=== PATIENT | female | born 1940 | race Caucasian/White ===

== ENCOUNTER 2018-02-15 13:41 | Inpatient (IN) ==
--- NOTE | 2018-02-15 13:54 | PDOC ---
Nausea/Vomiting/Diarrhea HPI - General Chief Complaint: Nausea / Vomiting / Diarrhea Stated Complaint: Vomiting Date Seen by Provider: 02/15/18 Time Seen by Provider: 13:54 Source: POSITIVE: Patient Exam Limitations: POSITIVE: No limitations Nurse's Notes Reviewed & Considered: Yes - History of Present Illness Initial Comments: This is a well-developed, thin, 77-year-old, female, complaining of abdominal pain, nausea, vomiting, and constipation alternating with diarrhea. Patient states her symptoms have been ongoing for longer than 2 months and that her nausea and vomiting are getting worse. She is now having off a ground emesis. She denies any headache, no sore throat, no fever chills or sweats, no hematuria or dysuria, no myalgias or arthralgias. Body Location Affected: REPORTS: Abdomen Timing: REPORTS: Constant Duration: Other (Greater than 2 months, acutely worse today) Severity: Severe Quality: REPORTS: "Pain" Abdominal Pain Onset Location: REPORTS: Generalized abdomen Abdominal Pain Radiation: REPORTS: Epigastric Context: REPORTS: None Modifying Factors: improves with: Nothing Associated Symptoms: REPORTS: Vomiting, Diarrhea, Epigastric Pain, Other ( Coffee ground emesis) Similar Symptoms Previously: No Recent Care Received: REPORTS: Recently Seen (Seen at the [facility] emergency room.) Any Prior Injuries Related to Current Complaint?: No - Patient Home Medications Home Medications: Home Medications Esomeprazole Cap [Nexium Cap] 40 mg PO BID 08/12/10 Leflunomide [Arava] 20 mg ORAL QD #30 tab 08/11/12 Nortriptyline HCl 1 cap PO DAILY 12/19/13 Docusate Sodium [Colace] 100 mg PO BID PRN cap 05/31/14 Folic Acid 1 mg PO DAILY tab 05/31/14 Lisinopril 10 mg PO DAILY tab 05/31/14 Tofacitinib Citrate [Xeljanz] 5 mg PO BID 01/04/16 Citalopram Hydrobromide [Citalopram HBr] 10 mg PO DAILY 01/05/16 Metoprolol Tartrate Tab [Lopressor Tab] 25 mg PO BID 08/18/16 - Patient Allergies Allergies/Adverse Reactions: Allergies 3 Allergy/AdvReac Type Severity Reaction Status Date / Time meperidine HCl [From Demerol] Allergy Intermediate SEIZURE Verified 02/15/18 18: 23 tegaserod hydrogen maleate AdvReac Severe VOMITING Verified 02/15/18 18:23 [From Zelnorm] Past Medical History - heen HEENT History: Dentures/Partials Additional HEENT History: BILATERAL CATARACTS removed, just has reading glasses Cardiovascular History: Hypertension Additional Cardiovasular History: MURMUR Respiratory History: COPD, Home Oxygen Use Additional Respiratory History: 2LPM O2 N/C CONTINUOUS Gastrointestinal History: GERD Genitourinary History: Recurrent UTI, Incontinence Additional Genitourinary History: CURRENTLY TAKING TRIMETHOPRIM FOR UTI Endocrine History: Denies History Musculoskeletal History: Arthritis, Osteoporosis, Rheumatoid Arthritis, Back Pain, Limited ROM, Joint Pain, Physical Limitation Prosthesis or Implant: No Additional Musculoskeletal History: MEDIPORT TO RIGHT UPPER CHEST Pain pump Neurological History: Denies History Blood Disorders: Denies History Psychiatric History: Depression History of Sexually Transmitted Diseases: No Cancer History: Denies History 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 History of Other Communicable Diseases: No Alcohol Use: None In the Past 12 Months, Have Used or Abuse Any Substance: None Previous Surgical History: Yes Type / Date of Surgery: BACK AND NECK + HWR/ BILAT TSA/ BILAT FOOT/ LEFT KNEE SCOPE WITH TKA / HYST/ APPY/ CATARACTS/ JAMI/ MEDIPORT X 3/ Anesthesia Reactions: Yes (PONV) Malignant Hyperthermia: No Significant Family History: Asthma, Heart disease, Cancer, COPD, Renal disease ROS - Limitations ROS Limitations: No Limitations Constitution: REPORTS: Denies Symptoms Cardiovascular: REPORTS: Denies Cardiac Symptoms Respiratory: REPORTS: Denies Resp Symptoms Neurological: REPORTS: Denies Neuro Symptoms Gastrointestinal: REPORTS: Abdominal Pain, Nausea, Vomitting, Diarrhea, Constipation, Other (Coffee ground emesis) Endocrine: REPORTS: Denies Symptoms Musculoskeletal: REPORTS: Denies MS Symptoms Genitourinary: REPORTS: Denies Symptoms Eyes: REPORTS: Denies Symptoms ENT: REPORTS: Denies Symptoms Skin: REPORTS: Denies Skin Symptoms Lympathic: REPORTS: Denies Lympathic Symptoms Immunologic: POSITIVE: Denies Symptoms Psychiatric: POSITIVE: Denies Psych Symptoms Nausea/Vomiting/Diarrhea Exam - General Appearance General Appearance: POSITIVE: Alert, Cooperative, No Evidence of Trauma, Mild Distress - HEENT HEENT: POSITIVE: Head Inspection Nml, Eyes Inspection Nml, Ears Inspection Nml, Nose Inspection Nml, Oral/Dental Inspect. Nml, Pharynx Inspect. Nml, PERRL, EOMI - Neck Neck: POSITIVE: Supple, Normal Inspection, Non Tender - Respiratory Respiratory: POSITIVE: No Respiratory Distress, Breath Sounds Normal, Chest Non- Tender - Cardiovascular Cardiovascular: POSITIVE: Regular Rate and Rhythm, Heart Sounds Normal, Strong Pulses Peripheral Pulses: Radial (L): 4+ - Chest Chest: POSITIVE: Non Tender - Abdomen Abdomen: Soft: (All Quadrants), Normal Bowel Sounds: (All Quadrants), Denies Tenderness: (LLQ), (RLQ), No Splenomegaly: (All Quadrants), No Hepatomegaly: ( All Quadrants), No Guarding: (RLQ), (LLQ), No Rebound: (All Quadrants), No Palpable Pulse: (All Quadrants), No Palpabale Mass: (RLQ), (LLQ), No Distention : (All Quadrants), No Rigidity: (All Quadrants), Tenderness Noted: (RUQ), (LUQ) , Palpable Mass Noted: (RUQ), (LUQ), Guarding: (RUQ), (LUQ) - Back Back: POSITIVE: Normal Inspection - Skin Skin: POSITIVE: Intact, Normal For Race, Warm, Dry, No Rash - Extremities Extremity: Non-Tender: (All Extremities), Normal ROM: (All Extremities), Normal Inspection: (All Extremities), Pelvis Stable: (All Extremities) - Neurological / Psychological Neurological: POSITIVE: Affect Apporpriate, Oriented X3, 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, Motor Normal, Sensation Normal N/V/D Progress - Results Reviewed by me Xrays/CTs/US Reviewed by me: Yes Discussed with Radiologist: Yes Lab Results Reviewed by Me: Yes CBC and BMP: 02/16/18 04:35 02/16/18 04:35 Lab Results:: Laboratory Results 3 02/15/18 02/15/18 02/15/18 15:07 15:07 15:07 WBC 6.26 RBC 2.85 L Hgb 9.6 L Hct 30.5 L MCV 107.0 H MCH 33.7 H MCHC 31.5 L RDW Std Deviation 57.5 H RDW Coeff of Christne 15.2 H Plt Count 163 MPV 9.7 Immature Gran % (Auto) 0.2 Neut % (Auto) 78.2 Lymph % (Auto) 15.3 [place] % (Auto) 5.9 Eos % (Auto) 0.2 Baso % (Auto) 0.2 Immature Gran # (Auto) 0.01 Neut # (Auto) 4.90 Lymph # (Auto) 0.96 [place] # (Auto) 0.37 Eos # (Auto) 0.01 Baso # (Auto) 0.01 WBC Morphology Comment Normal morphology Plt Morphology Comment Normal morphology RBC Morph Comment Normal morphology PT 10.7 INR 1.01 Sodium 140 Potassium 4.4 Chloride 103 Carbon Dioxide 30 Anion Gap 7 BUN 17 Creatinine 0.8 BUN/Creatinine Ratio 21.25 H Glucose 114 H Calculated Osmolality 292.0 Calcium 8.8 Magnesium 2.1 Total Bilirubin 0.4 AST 29 ALT 26 Alkaline Phosphatase 96 C-Reactive Protein 2.0 H Total Protein 6.8 Albumin 3.6 Globulin 3.2 Albumin/Globulin Ratio 1.10 L Lipase 10 L TSH 3 02/15/18 15:07 WBC RBC Hgb Hct MCV MCH MCHC RDW Std Deviation RDW Coeff of Christen Plt Count MPV Immature Gran % (Auto) Neut % (Auto) Lymph % (Auto) [place] % (Auto) Eos % (Auto) Baso % (Auto) Immature Gran # (Auto) Neut # (Auto) Lymph # (Auto) [place] # (Auto) Eos # (Auto) Baso # (Auto) WBC Morphology Comment Plt Morphology Comment RBC Morph Comment PT INR Sodium Potassium Chloride Carbon Dioxide Anion Gap BUN Creatinine BUN/Creatinine Ratio Glucose Calculated Osmolality Calcium Magnesium Total Bilirubin AST ALT Alkaline Phosphatase C-Reactive Protein Total Protein Albumin Globulin Albumin/Globulin Ratio Lipase TSH 2.05 - Patient's Progress Pain Medication Addressed: POSITIVE: Yes Status: POSITIVE: Improved MDM / ED Course: Patient was evaluated, an IV started, blood drawn and sent to the lab for studies, radiographic studies were obtained. Findings: CBC shows anemia with hemoglobin 9.6 hematocrit of 30.5. INR is normal at 1.05. See CRP is elevated at 2.0. Lipase is low in. TSH is normal at 2.05. CT scan of her abdomen shows no acute intra-abdominal abnormalities. Assessment: Hematemesis, likely related to ulcerative disease. Plan: I have contacted Dr. Finn for consultation from surgery, he will see the patient on the floor. I have contacted Dr. Thanh Akins's for admission , he has graciously accepted the patient and will evaluate the patient on the floor for admission. - Consult Consult (If Yes, Name of Consulting MD & Time Called): Yes (Dr. Nitza Finn 1700hrs. Dr. Hughes 1705hrs) Consulting MD will see pt:: [place] [facility] [place] Counseled: POSITIVE: Patient, Family, RE: Lab Results, RE: Radiology Results, RE : DX, RE: Need for F/U Patient Care Time - Estimated PCT Patient Care Time (In Minutes): 45 Vital Signs - Recent Vital Signs Vital Signs: Vital Signs (Last 8 hours) Temp Pulse Resp BP Pulse Ox 02/16/18 06:44 98 F 59 L 19 117/46 98 02/16/18 05:29 95 02/16/18 04:32 97.6 F 63 18 124/43 95 - VS Reviewed Vital Signs Reviewed: Yes Discharge Clinical Impression: Abdominal pain, Upper GI bleed Discharge Disposition: Admit to Inpatient Condition: Stable Date Decision to Admit to Inpatient: 02/16/18 Time Decision to Admit to Inpatient: 17:00
[2018-02-15] MEDS ORDERED: ONDANSETRON 4 MG/2 ML VIAL IVP ONE (14:03)
[2018-02-15] MEDS ORDERED: Sodium Chloride 0.9% 1,000 ML PRIMARY IV ONE ×2 (14:03→17:17)
[2018-02-15] MEDS ORDERED: MORPHINE SULFATE 4 MG/1 ML IVP ONE (14:03)
[2018-02-15 15:17] LABS: BASOPHILS # (AUTO) 0.01 10*3/UL; BASOPHILS % (AUTO) 0.2 % (0-1); EOSINOPHILS # (AUTO) 0.01 10*3/UL; EOSINOPHILS % (AUTO) 0.2 % (0-8); Hematocrit [HCT] 30.5 % (37.0-47.0); Hemoglobin [HGB] 9.6 g/dL (12.0-16.0); LYMPHOCYTES # (AUTO) 0.96 10*3/uL; MEAN CORPUSCULAR HEMOGLOBIN 33.7 PG (27-31); MEAN CORPUSCULAR HGB CONC 31.5 g/dL (33-37); MEAN PLATELET VOLUME 9.7 FL (7.4-12.2); MONOCYTES # (AUTO) 0.37 10*3/UL (0.3-0.8); MONOCYTES % (AUTO) 5.9 % (5-15); NEUTROPHILS % (AUTO) 78.2 % (50-80); PLATELET MORPHOLOGY COMMENT NORMAL MORPHOLOGY (NORM); RBC MORPHOLOGY COMMENT NORMAL MORPHOLOGY (NORM); RED BLOOD COUNT 2.85 10^6/uL (4.20-5.40); WBC MORPHOLOGY COMMENT NORMAL MORPHOLOGY (NORM)
[2018-02-15 15:37] LABS: BLOOD UREA NITROGEN 17 mg/dL (7-22); BUN/CREATININE RATIO 21.25 (6-20); LIPASE 10 IU/L (23-300); SERUM ALBUMIN 3.6 g/dL (3.5-4.8)
[2018-02-15] MEDS ORDERED: ONDANSETRON 4 MG/2 ML VIAL IVP PRN (18:32)
[2018-02-15] MEDS ORDERED: LIDOCAINE W/ SODIUM BICARB 0.5 ML SYR SUBD PRN (18:32)
[2018-02-15] MEDS ORDERED: DOCUSATE 100 MG CAPSULE PO PRN (18:33)
--- NOTE | 2018-02-15 18:37 | PDOC ---
HPI - History of Present Illness History of Present Illness: This very nice 77-year-old female comes to the hospital complaining of some abdominal pain severe heartburn occasional nausea and constipation. The constipation has a resolved but her heartburn was really bothering her is been going on for over a month now complaining also of ground emesis coffee-ground emesis be admitted for further evaluation general surgery was consult did and possible EGD in the morning Denies chest pain at present time shortness of breath and she is comfortably in bed Past Medical History Medical History: Chronic home oxygen at 2 L per nasal cannula, attributed to COPD although the patient did not smoke, rheumatoid arthritis, chronic back pain , MediPort the right upper chest, GERD status post Yony but still on proton pump inhibitor, depression, chronic pain related to rheumatoid arthritis, hypertension Surgical History: Back and neck surgeries, bilateral shoulder surgeries, bilateral foot surgery, left knee surgery, hysterectomy, appendectomy, cataracts , cholecystectomy, and a Mediport placement. The patient states that she had a Yony fundoplication recently and may have had a loop recorder placed in the past Pertinent Family History: Significant for colon cancer in the family. 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 Lives in the [place], [place] area. Had 5 children, but 2 have passed on, one from accidental carbon monoxide poisoning and 1 from a heart attack in her late 20s. Does not smoke, and does not drink alcohol. Tobacco Use: Never Smoker In the Past 12 Months, Have Used or Abuse Any of the Following Substance: None Medication / Allergies Home Medications: Home Medications 3 Medication Instructions Recorded Confirmed Type Esomeprazole Cap [Nexium Cap] 40 mg PO BID 08/12/10 02/15/18 History Leflunomide [Arava] 20 mg ORAL QD #30 tab 08/11/12 02/15/18 History Nortriptyline HCl 1 cap PO DAILY 12/19/13 02/15/18 History Docusate Sodium [Colace] 100 mg PO BID PRN cap 05/31/14 02/15/18 History Folic Acid 1 mg PO DAILY tab 05/31/14 02/15/18 History Lisinopril 10 mg PO DAILY tab 05/31/14 02/15/18 History Tofacitinib Citrate [Xeljanz] 5 mg PO BID 01/04/16 02/15/18 History Citalopram Hydrobromide 10 mg PO DAILY 01/05/16 02/15/18 History [Citalopram HBr] Metoprolol Tartrate Tab 25 mg PO BID 08/18/16 02/15/18 History [Lopressor Tab] Allergies/Adverse Reactions: Allergies 3 Allergy/AdvReac Type Severity Reaction Status Date / Time meperidine HCl [From Demerol] Allergy Intermediate SEIZURE Verified 02/15/18 18: 23 tegaserod hydrogen maleate AdvReac Severe VOMITING Verified 02/15/18 18:23 [From Zelnorm] Review of Systems - Review of Systems All Systems: Reviewed & No Additional Complaints Except as Stated - Respiratory Respiratory: DENIES: Negative System Review, Cough, Sputum, Dyspnea At Rest, Dyspnea with Exertion, Pleuritic Pain, Hemoptysis, Wheezing, Other, See HPI - Cardiovascular Cardiovascular: DENIES: Negative System Review, Chest Pain, Edema, Syncope, Palpitations, Orthopnea, Paroxysmal Nocturnal Dyspnea, Other, See HPI - Gastrointestinal Gastrointestinal / Abdominal: REPORTS: Nausea, Vomiting, Heartburn, Other ( Coffee-ground emesis) Exam - Vitals Vital Signs: Vital Signs Temperature 97.2 F Temperature Source Temporal Artery Scan Pulse Rate [Pulse Oximeter] 76 Pulse Rate 68 Respiratory Rate 16 Blood Pressure [Left Arm] 152/89 Blood Pressure 115/59 Pulse Ox 97 Oxygen Flow Rate 2 Oxygen Delivery Method Nasal Cannula Height 5 ft 1 in Weight 103 lb 1 oz - General General Appearance: No Acute Distress, Cooperative - Head Head Exam: Normal Inspection, Normocephalic, Atraumatic - Eye Eye Exam: POSITIVE: Normal Appearance, PERRL, EOMI, No Scleral Icterus - Respiratory Respiratory Exam: POSITIVE: Clear to Auscultation - Bilaterally, Breathing Non Labored, Normal To Percussion, Normal to Percussion and Palpation - Cardiovascular Cardiovascular Exam: POSITIVE: RRR, No Murmur, No Clicks, No Gallops, No Rubs, PMI Non-Displaced - GI/Abdominal GI/Abdominal Exam: POSITIVE: Normal Bowel Sounds, Non Tender, Non Distended, Soft, No Masses, No Hepatomegaly, No Splenomegaly, No Organomegaly - Extremities Extremities Exam: POSITIVE: Normal Inspection, Full ROM, Normal Capillary Refill , No Clubbing Present, No Edema Present, No Cyanosis Present, Negative Kristie's sign, Dosalis Pedis Pulses - Stong & Regular - Neurological Neurological Exam: POSITIVE: Alert, Oriented x 3, No Facial Droop, Speech Intact / Clear, Moves All Extremities Equally Results - Labs CBC and BMP: 02/15/18 15:07 02/15/18 15:07 Assessment and Plan - Patient Problems (1) Upper GI bleed Current Visit: Yes Status: Acute Comment: Most likely peptic ulcer disease we'll start Protonix IV twice a day general surgery consult did patient is nothing by mouth IV fluids at 125 an hour EGD in a.m. we'll resume usual medications for other medical issues are now stable Code(s): K92.2 - Gastrointestinal hemorrhage, unspecified (2) Abdominal pain Current Visit: Yes Status: Acute Code(s): R10.9 - Unspecified abdominal pain
[2018-02-15] MEDS ORDERED: LEFLUNOMIDE 20 MG ORAL SCH (18:45)
[2018-02-15] MEDS ORDERED: Pantoprazole Inj 40 MG in Normal Saline Flush 10 ML IVP SCH (18:45)
[2018-02-15] MEDS ORDERED: PANTOPRAZOLE IV 40 MG VIAL ONE (18:49)
[2018-02-15] MEDS: Sodium Chloride 0.9% 1,000 ML PRIMARY IV SCH (19:06)
--- NOTE | 2018-02-15 19:23 | CONSULT ---
Consult Note - Consult Consult Date: 02/15/18 Reason for Consult: PreOp Consulation : General Surgery Requesting Physician: Dr. Martinez Primary Care Provider: ALLISON BRITO - History of Present Illness History of Present Illness: This is a 77-year-old female who has a chronic anemia who comes in with a couple day history of severe epigastric abdominal pain. She states that she's having bad heartburn. She is also started having coffee-ground emesis. She states that she has been constipated but now the constipation has resolved. Patient has a history of chronic constipation. In 2014 we did a colonoscopy which was marginal bowel prep and no obvious cancers were seen at that time. She denies any blood in the stools at this time. Patient is continuing to take her Nexium. Patient is is concerned that she has a Mediport the has been flushed in years. She would like to have it removed Review of Systems - Constitutional Constitutional: REPORTS: Negative System Review, General Health Fair - Integumentary Integumentary: REPORTS: Negative System Review - Eye Exam Eye Exam: REPORTS: Negative System Review - Ear/Nose Exam Ear/Nose Exam: REPORTS: Negative System Review - Respiratory Respiratory: REPORTS: Negative System Review, Other (On oxygen) - Cardiovascular Cardiovascular: REPORTS: Negative System Review - Gastrointestinal Gastrointestinal / Abdominal: REPORTS: Nausea, Vomiting, Constipation, Heartburn , Other, See HPI - Genitourinary Genitourinary: REPORTS: Negative System Review - Musculoskeletal Musculoskeletal: REPORTS: Negative System Review - Hematlogic / Lymphatic Hematologic / Lymphatic: REPORTS: Negative System Review - Neurological Neurologic: REPORTS: Negative System Review - Psychiatric Psychiatric: REPORTS: Negative System Review Past Medical History Medical History: Chronic home oxygen at 2 L per nasal cannula, attributed to COPD although the patient did not smoke, rheumatoid arthritis, chronic back pain , MediPort the right upper chest, GERD status post Yony but still on proton pump inhibitor, depression, chronic pain related to rheumatoid arthritis, hypertension Surgical History: Back and neck surgeries, bilateral shoulder surgeries, bilateral foot surgery, left knee surgery, hysterectomy, appendectomy, cataracts , cholecystectomy, and a Mediport placement. The patient states that she had a Yony fundoplication recently and may have had a loop recorder placed in the past Pertinent Family History: Significant for colon cancer in the family. 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 Lives in the [place], [place] area. Had 5 children, but 2 have passed on, one from accidental carbon monoxide poisoning and 1 from a heart attack in her late 20s. Does not smoke, and does not drink alcohol. Tobacco Use: Never Smoker In the Past 12 Months, Have Used or Abuse Any of the Following Substance: None Medication / Allergies Home Medications: Home Medications 3 Medication Instructions Recorded Confirmed Type Esomeprazole Cap [Nexium Cap] 40 mg PO BID 08/12/10 02/15/18 History Leflunomide [Arava] 20 mg ORAL QD #30 tab 08/11/12 02/15/18 History Nortriptyline HCl 1 cap PO DAILY 12/19/13 02/15/18 History Docusate Sodium [Colace] 100 mg PO BID PRN cap 05/31/14 02/15/18 History Folic Acid 1 mg PO DAILY tab 05/31/14 02/15/18 History Lisinopril 10 mg PO DAILY tab 05/31/14 02/15/18 History Tofacitinib Citrate [Xeljanz] 5 mg PO BID 01/04/16 02/15/18 History Citalopram Hydrobromide 10 mg PO DAILY 01/05/16 02/15/18 History [Citalopram HBr] Metoprolol Tartrate Tab 25 mg PO BID 08/18/16 02/15/18 History [Lopressor Tab] Allergies/Adverse Reactions: Allergies 3 Allergy/AdvReac Type Severity Reaction Status Date / Time meperidine HCl [From Demerol] Allergy Intermediate SEIZURE Verified 02/15/18 18: 23 tegaserod hydrogen maleate AdvReac Severe VOMITING Verified 02/15/18 18:23 [From Zelnorm] Results - Labs CBC and BMP: 02/15/18 15:07 02/15/18 15:07 Exam - Vitals Vital Signs: Vital Signs Temperature 97.2 F Temperature Source Temporal Artery Scan Pulse Rate [Apical] 70 Pulse Rate [Pulse Oximeter] 76 Pulse Rate 68 Respiratory Rate 16 Blood Pressure [Left Arm] 152/89 Blood Pressure 115/59 Pulse Ox 97 Oxygen Flow Rate 2 Oxygen Delivery Method Nasal Cannula Height 5 ft 1 in Weight 103 lb 1 oz - General General Appearance: No Acute Distress - Head Head Exam: Normocephalic - Eye Eye Exam: POSITIVE: PERRL, EOMI - Neck Neck Exam: Full ROM - Respiratory Respiratory Exam: POSITIVE: Clear to Auscultation - Bilaterally, Breathing Non Labored - Cardiovascular Cardiovascular Exam: POSITIVE: RRR, No Murmur, No Clicks, No Gallops - GI/Abdominal GI/Abdominal Exam: POSITIVE: Non Tender, Non Distended, Soft - Rectal Rectal Exam: POSITIVE: Deferred - External Exam: POSITIVE: Deferred - Extremities Extremities Exam: POSITIVE: Normal Inspection, Full ROM, Normal Capillary Refill , No Clubbing Present, No Edema Present, No Cyanosis Present, Negative Kristie's sign, Dosalis Pedis Pulses - Stong & Regular - Neurological Neurological Exam: POSITIVE: Alert, Oriented x 3, CN II-XII Intact - Psychiatric Psychiatric Exam: POSITIVE: Normal Affect, Normal Mood Assessment and Plan - Patient Problems (1) Hematemesis with nausea Current Visit: Yes Status: Acute Code(s): K92.0 - Hematemesis - Assessment / Plan Additional Assessment/Plan Details: Would recommend the patient have an EGD. The risk and potential complications of the procedure were discussed with the patient.. They understood this. Also discussed alternatives diagnostic and treatment options. Will get the EGD set up at the first available date. CPT 14132 Also would recommend that she had a Mediport remove stitches no longer using this. We will see if Medicare will allow this be done at this visit
[2018-02-15] MEDS: Metoprolol TARTRATE Tab 25 MG TAB PO SCH (20:10)
--- NOTE | 2018-02-15 23:02 | DI ---
CT ABDOMEN SCAN WITH IV CONTRAST, 02/15/2018 2:03 PM : Clinical History: Epigastric pain. Epigastric mass with nausea, vomiting coffee grounds material. Previous Exam: 07/02/2015. Scans are performed from the lower lung bases through the liver and kidneys with IV contrast. 65 mL o f Isovue 300 was injected IV. Water was used for rectal contrast. The lung bases are clear. Coronary artery calcifications are present in the proximal and middle third s of the LAD, the proximal right coronary artery and in the left circumflex artery extending to the m edial and lateral branches. A large hiatal hernia is present. The liver is normal but does show mild intrahepatic biliary dilatation secondary to cholecystectomy. Common bile duct measures 9 mm. There i s no abnormality of the spleen, pancreas, and adrenal glands. Both kidneys are normal in size, shape, position and contour. There is no hydronephrosis or hydroureter. No renal or ureteral calculi are pr esent. There are no abnormal retrocrural or periaortic nodes. No ascites is present. READIN. Normal CT abdomen scan. No mass is seen in the epigastric region. 2. Coronary artery disease. CT PELVIS SCAN WITH IV CONTRAST, 02/15/2018 2:03 PM: Clinical History: See above. Previous Exam: 07/02/2015. Scans are performed from just superior to the umbilicus to the symphysis pubis with IV contrast. This is the same bolus of contrast used for the CT scans of the abdomen. Scans through the lower abdomen and pelvis show no masses, enhancing lesions, or abnormal fluid colle ctions. There is no adenopathy. The appendix is not identified with certainty but there is no inflamm atory mass either in the cecum or in the right lower quadrant. The small bowel, terminal ileum, and i leocecal valve are normal. The colon is also normal. There are no hernias. Neither the uterus nor the ovaries are visualized in this patient presumably is status post hysterectomy and bilateral salpingo -oophorectomy. READING: Normal CT scan of the pelvis with IV contrast.
[2018-02-16] MEDS: Sodium Chloride 0.9% 1,000 ML PRIMARY IV SCH ×2 (01:48→11:55)
[2018-02-16 05:34] LABS: BASOPHILS # (AUTO) 0 10*3/UL; BASOPHILS % (AUTO) 0 % (0-1); EOSINOPHILS # (AUTO) 0.12 10*3/UL; EOSINOPHILS % (AUTO) 2.6 % (0-8); Hematocrit [HCT] 25.9 % (37.0-47.0); Hemoglobin [HGB] 8.2 g/dL (12.0-16.0); LYMPHOCYTES # (AUTO) 1.42 10*3/uL; MEAN CORPUSCULAR HEMOGLOBIN 34.2 PG (27-31); MEAN CORPUSCULAR HGB CONC 31.7 g/dL (33-37); MEAN CORPUSCULAR VOLUME 107.9 FL (81-99); MEAN PLATELET VOLUME 9.5 FL (7.4-12.2); MONOCYTES # (AUTO) 0.48 10*3/UL (0.3-0.8); MONOCYTES % (AUTO) 10.5 % (5-15); NEUTROPHILS # (AUTO) 2.53 10*3/UL; NEUTROPHILS % (AUTO) 55.7 % (50-80)
[2018-02-16 05:41] LABS: PLATELET MORPHOLOGY COMMENT NORMAL MORPHOLOGY (NORM); RBC MORPHOLOGY COMMENT NORMAL MORPHOLOGY (NORM); WBC MORPHOLOGY COMMENT NORMAL MORPHOLOGY (NORM)
[2018-02-16 05:55] LABS: BLOOD UREA NITROGEN 13 mg/dL (7-22); BUN/CREATININE RATIO 16.25 (6-20)
[2018-02-16] MEDS ORDERED: Lactated Ringers 1,000 ML PRIMARY IV SCH (07:45)
[2018-02-16] MEDS ORDERED: PANTOPRAZOLE IV 40 MG VIAL ONE ×2 (09:10→20:14)
[2018-02-16] MEDS: Pantoprazole Inj 40 MG in Normal Saline Flush 10 ML IVP SCH ×2 (09:17→20:21)
[2018-02-16] MEDS: FOLIC ACID 1 MG TABLET PO SCH (09:18)
[2018-02-16] MEDS: Metoprolol TARTRATE Tab 25 MG TAB PO SCH ×2 (09:18→20:20)
[2018-02-16] MEDS: CITALOPRAM 20 MG TABLET PO SCH (09:18)
[2018-02-16] MEDS: NORTRIPTYLINE HCL 10 MG CAPSULE PO SCH (09:19)
--- NOTE | 2018-02-16 09:49 | PDOC(PROG) ---
Date and Time of Service: 02/16/2018 9:45 AM Interval History: Subjective Patient came in yesterday because of history of heartburn that's been going on for 2-3 months, she did say that she been vomiting every morning the last month. The last 2 days she had coffee-ground vomiting she vomited 3 times the day before and twice yesterday. She did not eat much since yesterday. She feels better today the heart burn seemed to be improved the vomiting seemed to be stopped. She has a history of rheumatoid arthritis and been on multiple medications now currently she is on xeljanz. She denied taking any NSAIDs. She said she has a pain pump for her back pain. Objective : Data - Labs CBC and BMP: 02/16/18 04:35 02/16/18 04:35 Objective : Exam - General General Appearance: No Acute Distress, Cooperative - Head Head Exam: Normal Inspection - Eye Eye Exam: Normal Appearance - ENT ENT Exam: Normal Exam - Neck Neck Exam: Normal Inspection - Respiratory Respiratory Exam: Clear to Auscultation - Bilaterally Additional Respiratory Exam Details: MediPort felt on the right side of the chest. - Cardiovascular Cardiovascular Exam: RRR - GI/Abdominal GI/Abdominal Exam: Normal Bowel Sounds, Non Tender, Non Distended, Soft, No Organomegaly - Rectal Rectal Exam: Deferred - External Exam: Deferred - Extremities Additional Extremities Exam Details: Changes of rheumatoid arthritis noted in both hands. - Back Additional Back Exam Details: Scoliosis is noted on the back. The pain pump is present in the back. - Neurological Neurological Exam: Alert, Oriented x 3, CN II-XII Intact, Speech Intact / Clear Additional Neurological Exam Details: Limited right shoulder abduction because of previous surgery. - Psychiatric Psychiatric Exam: Normal Affect - Integumentary Integumentary Exam: Pallor Assessment and Plan - Patient Problems (1) Abdominal pain Current Visit: Yes Status: Acute Comment: may be due to Severe reflux, gastritis or an ulcer. She is on Protonix continue. She'll have an EGD done today. Code(s): R10.9 - Unspecified abdominal pain (2) Upper GI bleed Current Visit: Yes Status: Acute Comment: She'll have an EGD to look into the possibility of gastritis or reflux or an ulcer. Continue Protonix. She has anemia and she had anemia from before her MCV is elevated we'll send for B12 folate and ferritin and iron levels. Code(s): K92.2 - Gastrointestinal hemorrhage, unspecified (3) Hypertension Current Visit: No Status: Acute Comment: Continue metoprolol. Lisinopril was withheld to continue holding it. Code(s): I10 - Essential (primary) hypertension Qualifiers: Hypertension type: essential hypertension Qualified Code(s): I10 - Essential (primary) hypertension
[2018-02-16] MEDS ORDERED: LIDOCAINE MPF 2% - 5 ML (20 MG/1 ML) ONE ×3 (10:53→11:24)
[2018-02-16] MEDS ORDERED: MIDAZOLAM 5 MG/1 ML ONE (10:53)
[2018-02-16] MEDS ORDERED: PROPOFOL 10 MG/1 ML (200 MG/20 ML) VIAL IV ONE (10:53)
[2018-02-16] MEDS ORDERED: fentaNYL Inj 100 MCG/2 ML VIAL ONE (10:53)
[2018-02-16] MEDS ORDERED: LIDOCAINE 2% VISCOUS(20 MG/1 ML) - 15 ML UD CUP PO ONE (10:56)
--- NOTE | 2018-02-16 11:43 | GEN.OPNOTE ---
EGD Operative Note Surgery Date: 02/16/18 Preoperative Diagnosis: Upper GI bleed Postoperative Diagnosis: Small bleeding ulcer with scab over seen in the upper portion of the stomach within the hiatal hernia. Gastritis Procedure: Esophagogastroduodenoscopy with biopsies Surgeon: Christian Finn MD Anesthesia Provider: Kristie Apodaca CRNA Anesthesia Type: MAC Indications: Patient has an upper GI bleed with hematemesis and anemia Findings: Esophagus: Lipids video EGD scope sent posterior pharynx Esophagus under Direct Visualization. Patient Had Tortures Esophagus Measured Approximately 35 Cm from Incisors to the GE junction GE Junction : GE junction at 35 cm Fundus : Scope retroflexed on itself revealing a moderate-sized hiatal hernia. Brought the scope into the hiatal hernia and in the pouch of the hiatal hernia there was a balloon bleeding spot. This appeared to be a punctate ulcer. Good clot but it was a fresh clot on it. Body : Body of the stomach appeared be normal no ulcers or masses. Prepyloric : Prepyloric area had some mild inflammatory condition. Biopsy taken CLOtest taken Small Intestine : Her second portion the duodenum. Normal A lubricated flexible upper endoscope was inserted and passed through the esophagus and stomach into the duodenum. Pathology: Biopsying a pre-antral area and CLOtest Additional Details: We'll need to get an upper GI x-ray to assess what type a hiatal hernia patient has whether we have a sliding hiatal hernia versus true paraesophageal hiatal hernia. Endoscopy Procedures - Endoscopy Procedures Primary Endoscopy Procedure: 41209 : EGD w/Biospy
--- NOTE | 2018-02-16 11:46 | GEN.OPNOTE ---
Operative Note Surgery Date: 02/16/18 Preoperative Diagnosis: Gastrointestinal hemorrhage secondary to an ulcer and a hiatal hernia. Compared arthritis. Mediport that is no longer functioning Postoperative Diagnosis: Same as preoperative diagnosis Procedure: Removal of Mediport Surgeon: Christian Finn MD Anesthesia Provider: Kristie Apodaca CRNA Anesthesia Type: Local, MAC Estimated Blood Loss (mL): 1 Indications: This elderly female who lives a distance from the hospital comes in with upper GI bleed. Patient has a Mediport that no longer is functioning in fact has not been flushed for this year. Therefore it needs removed. Patient is having conscious sedation with an EGD procedure for an upper GI bleed. His toes patient's best interest not to go through to anesthetics or surgical procedures therefore were going to remove the Mediport at the time of her EGD. Operative Summary: Patient is placed in supine position. Prepped draped sterile fashion. Timeout performed per protocol was done. I infiltrated 2% Xylocaine a total of 8 mL was used. Adequate hemostasis, I made a skin incision through the previous scar. Bluntly dissected out the catheter and removed it. I then bluntly dissected out the Mediport. I removed the capsule electrocautery. After adequate hemostasis a closed the wound with 4-0 Monocryl continuous running septic restitch. Sterile dressings applied. Patient tolerated procedure well the were no complications. Patient Problems - Patient Problem List (1) Hematemesis with nausea Current Visit: Yes Status: Acute Code(s): K92.0 - Hematemesis Category: Medical Procedure Codes - Catheterization/Mediport Procedures Primary Catheterization/Mediport Procedure: 51210 : Removal CVC, Tunnel, Subq
--- NOTE | 2018-02-16 12:50 | CRNA.PROGR ---
Anesthesia Time - - Start date: 02/16/18 - Procedure/Recovery Time Anesthesia : Time In: 10:56 Anesthesia : Time Out: 11:37 - Other Weight: 48.172 kg Height: 5 ft 1 in Body Mass Index (BMI): 20.0 Physical Status: P3 Anesthesia Type: MAC
--- NOTE | 2018-02-16 16:02 | DI ---
SINGLE CONTRAST UPPER GI SERIES, 02/16/2018 11:54 AM: Clinical History: Hiatal hernia with upper GI hemorrhage. A "time out" session was performed to verify the patient's name and date of prior to initiating this procedure. Deglutition is normal and the esophagus strips well. There are tertiary contractions throughout appropriate for the patient's age. In the distal half of the esophagus, there is a nodula r pattern in the mucosa consistent with esophagitis. No esophageal stricture is identified. This jc ent has had a previous fundoplication in the fundus lies above the diaphragm. The body, antrum, pylor ic channel, duodenal bulb, and proximal small bowel run off are normal. Readin. Status post previous fundoplication. The fundus lies above the diaphragm. 2. There is esophagitis involving the distal half of the esophagus. 3. The remainder of the study from the body of the stomach to the small bowel run off is normal.
[2018-02-16] MEDS: Sucralfate Tab 1 GM TAB PO SCH ×2 (17:52→20:20)
[2018-02-17 04:58] LABS: BASOPHILS # (AUTO) 0.01 10*3/UL; BASOPHILS % (AUTO) 0.2 % (0-1); EOSINOPHILS # (AUTO) 0.17 10*3/UL; EOSINOPHILS % (AUTO) 3.4 % (0-8); Hematocrit [HCT] 27.4 % (37.0-47.0); Hemoglobin [HGB] 8.6 g/dL (12.0-16.0); LYMPHOCYTES # (AUTO) 1.49 10*3/uL; MEAN CORPUSCULAR HGB CONC 31.4 g/dL (33-37); MEAN CORPUSCULAR VOLUME 108.3 FL (81-99); MEAN PLATELET VOLUME 9.5 FL (7.4-12.2); NEUTROPHILS # (AUTO) 2.96 10*3/UL; NEUTROPHILS % (AUTO) 58.8 % (50-80); RED BLOOD COUNT 2.53 10^6/uL (4.20-5.40)
[2018-02-17 05:03] LABS: PLATELET MORPHOLOGY COMMENT NORMAL MORPHOLOGY (NORM); RBC MORPHOLOGY COMMENT NORMAL MORPHOLOGY (NORM); WBC MORPHOLOGY COMMENT NORMAL MORPHOLOGY (NORM)
[2018-02-17 06:50] VITALS: BP 137/44; RESP 16; TEMP 97; O2SAT 96
--- NOTE | 2018-02-17 08:56 | PDOC(PROG) ---
Date and Time of Service: 02/17/2017 at 850 Interval History: Patient overall is feeling better has no longer throwing up. No hematemesis. Hemoglobin is coming up to 8.6 Objective : Data - Labs CBC and BMP: 02/17/18 04:30 02/16/18 04:35 - Vital Signs Vital Signs and I&O: Vital Signs - Last Taken Temperature 97.0 F 02/17/18 06:48 Pulse Rate 60 02/17/18 07:00 Respiratory Rate 16 02/17/18 07:00 Blood Pressure 137/44 02/17/18 06:48 Pulse Ox 96 02/17/18 06:48 Intake and Output (24hr x 4 totals) 02/15/18 02/16/18 02/17/18 02/18/18 05:59 05:59 05:59 05:59 Intake Total 1533 / 1533 700 / 700 Output Total 250 / 250 900 / 900 Balance 1283 / 1283 -200 / -200 Objective : Exam - General General Appearance: No Acute Distress, Cooperative Assessment and Plan - Patient Problems (1) Hematemesis with nausea Current Visit: Yes Status: Acute Code(s): K92.0 - Hematemesis - Assessment / Plan Additional Assessment/Plan Details: 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 This is causing a small pouch (like a gastric band). Therefore the patient has 2 options. The first option is to do a revision the Yony fundoplication. The second option is to go to a bariatric diet with 4 ounce males and supplementing with Ensure 3 times a day. Radha would like to try the diet first. She also wants to switch to provider and Shawn therefore recommend Nilda Wagner who specializes in geriatric patients. Would switch her to Protonix since it seems to work better for her. She followed me in 2 weeks
--- NOTE | 2018-02-17 09:27 | DCSUMMARY ---
Hospitalization Summary Admit Date: 02/15/2018 Discharge Date: 02/17/18 Hospital Course: Discharge diagnoses 1. Upper GI bleed secondary to esophageal ulcer 2. Subjective DL ulcer with the fresh clot on it 3. Hiatal hernia 4. Slipped Yony fundoplication 5. Hypertension 6. History of rheumatoid arthritis 7. History of hypoxia on oxygen Hospital course This is a 77 years old female with medical history significant for history of rheumatoid arthritis, hypertension, depression and previous Yony fundoplication who presented to the hospital with history of abdominal pain described as heartburn with nausea and also had an episode of coffee-ground emesis the night before admission and the day of admission because of that she came into the ER and was admitted to the hospital by Dr. Hughes please see his note. Patient was put on Protonix IV. She was given also some IV fluid. Patient had an EGD which showed esophageal ulcer with fresh clot on it. We kept the patient after the procedure until the next day. She felt better there was no more heartburn and no more vomiting. Her hemoglobin the next day was 8.2 but on the day of discharge went up to 8.6. Patient did have also an upper GI series which showed slipped Yony fundoplication and Dr. Finn suggested change in the diet to bariatric diet. On the day of discharge as I said she was feeling better exam unchanged from before there is no abdominal tenderness. We thought she could be discharged home and follow-up with her new primary I did write prescription for Protonix and gave some iron pills. She need to have a repeat blood test in 2-3 weeks to recheck on her hemoglobin. Laboratory Results 02/17/18 02/17/18 02/17/18 Range/Units 04:30 04:30 04:30 WBC (4.8-10.8) 10^3/uL RBC (4.20-5.40) 10^6/uL Hgb (12.0-16.0) g/dL Hct (37.0-47.0) % MCV (81-99) FL MCH (27-31) PG MCHC (33-37) g/dL RDW Std Deviation (39-50) fL RDW Coeff of Christen (11.5-14.5) % Plt Count (140-350) 10*3/uL MPV (7.4-12.2) FL Immature Gran % (Auto) (0-5) % Neut % (Auto) (50-80) % Lymph % (Auto) (10-50) % Coos % (Auto) (5-15) % Eos % (Auto) (0-8) % Baso % (Auto) (0-1) % Immature Gran # (Auto) 10*3/UL Neut # (Auto) 10*3/UL Lymph # (Auto) 10*3/uL Coos # (Auto) (0.3-0.8) 10*3/UL Eos # (Auto) 10*3/UL Baso # (Auto) 10*3/UL WBC Morphology Comment (NORM) Plt Morphology Comment (NORM) RBC Morph Comment (NORM) Iron 60 (37-170) UG/DL TIBC 246 L (265-497) ug/dL % Saturation 24.39 (14-50) % Ferritin 182.00 (12.00-336.70) ng/mL Vitamin B12 318 (239-931) pg/mL Serum Folate > 20.0 H (2.76-20.0) NG/ML Blood Type Antibody Screen 02/17/18 02/17/18 Range/Units 04:30 04:30 WBC 5.03 (4.8-10.8) 10^3/uL RBC 2.53 L (4.20-5.40) 10^6/uL Hgb 8.6 L (12.0-16.0) g/dL Hct 27.4 L (37.0-47.0) % MCV 108.3 H (81-99) FL MCH 34.0 H (27-31) PG MCHC 31.4 L (33-37) g/dL RDW Std Deviation 56.6 H (39-50) fL RDW Coeff of Christen 14.8 H (11.5-14.5) % Plt Count 127 L (140-350) 10*3/uL MPV 9.5 (7.4-12.2) FL Immature Gran % (Auto) 0 (0-5) % Neut % (Auto) 58.8 (50-80) % Lymph % (Auto) 29.6 (10-50) % Coos % (Auto) 8.0 (5-15) % Eos % (Auto) 3.4 (0-8) % Baso % (Auto) 0.2 (0-1) % Immature Gran # (Auto) 0 10*3/UL Neut # (Auto) 2.96 10*3/UL Lymph # (Auto) 1.49 10*3/uL Coos # (Auto) 0.40 (0.3-0.8) 10*3/UL Eos # (Auto) 0.17 10*3/UL Baso # (Auto) 0.01 10*3/UL WBC Morphology Comment Normal morphology (NORM) Plt Morphology Comment Normal morphology (NORM) RBC Morph Comment Normal morphology (NORM) Iron (37-170) UG/DL TIBC (265-497) ug/dL % Saturation (14-50) % Ferritin (12.00-336.70) ng/mL Vitamin B12 (239-931) pg/mL Serum Folate (2.76-20.0) NG/ML Blood Type A POSITIVE Antibody Screen Negative Discharge instruction Diet regular Activity as started Medications Current Medication(s) 3 Medication Instructions Recorded Confirmed Type Leflunomide [Arava] 20 mg ORAL QD #30 tab 08/11/12 02/15/18 History Nortriptyline HCl 1 cap PO DAILY 12/19/13 02/15/18 History Docusate Sodium [Colace] 100 mg PO BID PRN cap 05/31/14 02/15/18 History Folic Acid 1 mg PO DAILY tab 05/31/14 02/15/18 History Lisinopril 10 mg PO DAILY tab 05/31/14 02/15/18 History Tofacitinib Citrate [Xeljanz] 5 mg PO BID 01/04/16 02/15/18 History Citalopram Hydrobromide 10 mg PO DAILY 01/05/16 02/15/18 History [Citalopram HBr] Metoprolol Tartrate Tab 25 mg PO BID 08/18/16 02/15/18 History [Lopressor Tab] Ferrous Sulfate [Feosol] 325 mg PO DAILY #30 tab 02/17/18 Rx Pantoprazole Sodium [Protonix] 40 mg PO BID #60 tab 02/17/18 Rx Follow-up with PCP in 1-[address] Finn in 1-2 weeks Condition at discharge stable for discharge Exam - Vitals Vital Signs: Vital Signs Temperature 97.0 F Temperature Source Temporal Artery Scan Pulse Rate [Apical] 70 Pulse Rate [Pulse Oximeter] 60 Pulse Rate 68 Respiratory Rate 16 Blood Pressure [Left Arm] 137/44 Blood Pressure 115/59 Pulse Ox 96 Oxygen Flow Rate 2 Oxygen Delivery Method Nasal Cannula Height 5 ft 1 in Weight 108 lb 11.2 oz - General General Appearance: No Acute Distress, Cooperative - Head Head Exam: Normal Inspection - ENT ENT Exam: POSITIVE: Normal Exam - Neck Neck Exam: Normal Inspection - Respiratory Respiratory Exam: POSITIVE: Clear to Auscultation - Bilaterally - Cardiovascular Cardiovascular Exam: POSITIVE: RRR - GI/Abdominal GI/Abdominal Exam: POSITIVE: Normal Bowel Sounds, Non Tender, Non Distended, Soft, No Organomegaly - Rectal Rectal Exam: POSITIVE: Deferred - External Exam: POSITIVE: Deferred - Extremities Additional Extremities Exam Details: Changes of rheumatoid arthritis in her hands noted - Back Additional Back Exam Details: Scoliosis is noted - Neurological Neurological Exam: POSITIVE: Alert, Oriented x 3, CN II-XII Intact, No Facial Droop, Speech Intact / Clear, Moves All Extremities Equally - Psychiatric Psychiatric Exam: POSITIVE: Normal Affect Patient Problems - Patient Problem List (1) Abdominal pain Status: Acute Code(s): R10.9 - Unspecified abdominal pain Category: Medical (2) Upper GI bleed Status: Acute Code(s): K92.2 - Gastrointestinal hemorrhage, unspecified Category: Medical (3) Hypertension Status: Acute Code(s): I10 - Essential (primary) hypertension Qualifiers: Hypertension type: essential hypertension Qualified Code(s): I10 - Essential (primary) hypertension Category: Medical
[2018-02-17] MEDS ORDERED: PANTOPRAZOLE IV 40 MG VIAL ONE (09:40)
[2018-02-17] MEDS: Pantoprazole Inj 40 MG in Normal Saline Flush 10 ML IVP SCH (09:54)
[2018-02-17] MEDS: NORTRIPTYLINE HCL 10 MG CAPSULE PO SCH (09:54)
[2018-02-17] MEDS: CITALOPRAM 20 MG TABLET PO SCH (09:55)
[2018-02-17] MEDS: FOLIC ACID 1 MG TABLET PO SCH (09:55)
[2018-02-17] MEDS: Metoprolol TARTRATE Tab 25 MG TAB PO SCH (09:55)
[2018-02-17] MEDS: Sucralfate Tab 1 GM TAB PO SCH (09:56)
== END 2018-02-17 11:33 | disposition home or self-care (01) | DRG 378 ==
LOC: ER 13:41 → MED/SURG 18:04 → OPS 02-16 10:36 → MED/SURG 02-16 11:46
PROVIDERS: ADMIT Internal Medicine; ATTEND Internal Medicine